=== PATIENT | female | born 1955 | race Caucasian/White ===

== ENCOUNTER 2022-05-09 22:34 | Emergency (ER) | payer BC ==
[~2022-05-09] VITALS: Ht 167.6 cm; Wt 109.3 kg
[~2022-05-09 22:34] MED LIST: ASA81 MG PO; CLARITIN10 M3 PO; Z BUPROPION HCL PO; Z.0.MELOXICAM15 MG PO; Z.0.METOPROLOL TAR10 PO
[2022-05-09] MEDS ORDERED: TRAMADOL HCL 50 MG TAB PO STA (23:22)
[2022-05-09] MEDS ORDERED: TRAMADOL HCL 50 MG TAB PO ONE (23:45)
[2022-05-10] MEDS ORDERED: ULTRAM 50MG50 MG PO (00:26)
== END 2022-05-10 00:30 | disposition home or self-care (01) ==
LOC: MERGE 23:01 → ER 23:01
DX: M79.632 Pain in left forearm (principal); I25.10 Atherosclerotic heart disease of native coronary artery without angina pectoris; Z87.442 Personal history of urinary calculi
CPT/HCPCS: 93971; 99283